=== PATIENT | female | born 1990 | race Caucasian/White ===

== ENCOUNTER 2023-07-29 22:17 | Emergency (ER) | payer OTHER ==
[~2023-07-29] VITALS: Ht 152.4 cm; Wt 70.4 kg
[2023-07-29 22:27] VITALS: BP 139/86; PULSE 74; RESP 14; TEMP 98.3; O2SAT 98
[2023-07-29] MEDS ORDERED: IBUP-2218 PO (23:38)
[2023-07-29] MEDS ORDERED: ACET-10509 PO (23:38)
[2023-07-29] MEDS: KETOROLAC 30 MG/ML VIAL IM ONE (23:57)
[2023-07-29] MEDS: LIDOCAINE 5% 1 EA PATCH TP ONE (23:59)
[2023-07-30] VITALS: BP 136/78; PULSE 70; RESP 18; TEMP 97.7; O2SAT 100
== END 2023-07-29 23:55 | disposition home or self-care (01) ==
LOC: MED 22:17
DX: S39.012A Strain of muscle, fascia and tendon of lower back, initial encounter (principal); V49.88XA Car occupant (driver) (passenger) injured in other specified transport accidents, initial encounter; Y93.89 Activity, other specified; Y92.89 Other specified places as the place of occurrence of the external cause; Y99.8 Other external cause status
CPT/HCPCS: 81025; 96372; 99283; J1885

== ENCOUNTER 2023-08-31 18:28 | Emergency (ER) | payer OTHER ==
[~2023-08-31] VITALS: Ht 160 cm; Wt 70.8 kg
[~2023-08-31 18:28] MED LIST: ACET-10509 PO; IBUP-2218 PO
[2023-08-31 18:37] VITALS: BP 139/82; PULSE 73; RESP 17; TEMP 97.8; O2SAT 99
[2023-08-31 19:00] VITALS: O2SAT 98
[2023-08-31] MEDS: KETOROLAC 60 MG/2 ML VIAL IM ONE (19:29)
[2023-08-31 20:33] VITALS: BP 135/80; PULSE 75; RESP 17; TEMP 98; O2SAT 99
[2023-08-31] MEDS ORDERED: IBUP-2213 PO (21:25)
[2023-08-31] MEDS ORDERED: CYCL-711 PO (21:25)
== END 2023-08-31 21:50 | disposition home or self-care (01) ==
LOC: MED 18:28
DX: S39.012A Strain of muscle, fascia and tendon of lower back, initial encounter (principal); M79.632 Pain in left forearm; R51.9 Headache, unspecified; M54.6 Pain in thoracic spine; R20.2 Paresthesia of skin; Z86.39 Personal history of other endocrine, nutritional and metabolic disease; Z79.899 Other long term (current) drug therapy; V89.2XXA Person injured in unspecified motor-vehicle accident, traffic, initial encounter; Y93.89 Activity, other specified; Y92.410 Unspecified street and highway as the place of occurrence of the external cause; Y99.8 Other external cause status
CPT/HCPCS: 72072; 72110; 73090; 81025; 96372; 99284; J1885

== ENCOUNTER 2023-09-19 09:41 | Emergency (ER) | payer OTHER ==
[~2023-09-19] VITALS: Ht 152.4 cm; Wt 65.8 kg
[~2023-09-19 09:41] MED LIST changes: +CYCL-711 PO; +IBUP-2213 PO
[2023-09-19 09:48] VITALS: BP 96/60; PULSE 98; RESP 22; TEMP 98.9; O2SAT 98
[2023-09-19 10:10] VITALS: O2SAT 98
[2023-09-19] MEDS: NACL 0.9% 1,000 ML IV ONE (10:27)
[2023-09-19] MEDS: ONDANSETRON 4 MG/2 ML VIAL IVP ONE (10:28)
[2023-09-19 10:42] LABS: BASOPHILS % (AUTO) 0.1 % (0.0-2.0); HEMATOCRIT 35.3 % (36-48); HEMOGLOBIN 11.1 g/dL (12.0-16.0); LYMPHOCYTES # (AUTO) 0.3 K/uL (2.5-16.5); LYMPHOCYTES % (AUTO) 3.5 % (20.5-51.1); MEAN CORPUSCULAR HEMOGLOBIN 23 pg (27-31); MEAN CORPUSCULAR HGB CONC 32 g/dL (33-37); MEAN CORPUSCULAR VOLUME 72.9 fL (80-94); MONOCYTES # (AUTO) 0.6 K/uL (0.8-1.0); MONOCYTES % (AUTO) 5.8 % (1.7-9.3); NEUTROPHILS % (AUTO) 90.6 % (42.2-75.2); PLATELET COUNT (AUTO) 342 K/uL (140-450); RED BLOOD CELL COUNT(AUTO) 4.84 MIL/uL (4.20-5.40); RED CELL DISTRIBUTION WIDTH 16.4 % (11.6-13.7)
[2023-09-19 10:53] LABS: ANION GAP 10.7 (8-16); CALCIUM 8.4 mg/dL (8.5-10.1); CARBON DIOXIDE 27.2 mmol/L (21-32); CREATININE 0.9 mg/dL (0.6-1.3); POTASSIUM 3.9 mmol/L (3.5-5.1)
[2023-09-19 10:59] LABS: ALBUMIN 3.7 g/dL (3.4-5.0); BILIRUBIN,DIRECT 0.1 mg/dL (0.0-0.3); TOTAL BILIRUBIN 0.6 mg/dL (0.0-1.0); TOTAL PROTEIN, SERUM 7.8 g/dL (6.4-8.2)
[2023-09-19 11:00] LABS: APPEARANCE,URINE CLEAR (CLEAR); BILIRUBIN,URINE NEGATIVE (NEGATIVE); BLOOD, URINE TRACE-I (NEGATIVE); COLOR,URINE YELLOW (YELLOW); LEUKOCYTE ESTERASE ,URINE NEGATIVE (NEGATIVE); NITRITE, URINE NEGATIVE (NEGATIVE); PROTEIN,URINE TRACE (NEGATIVE); UGLUCOSE NEGATIVE (NEGATIVE); UROBILINOGEN,URINE 0.2 EU/dL (0.2 - 1)
[2023-09-19] MEDS ORDERED: ONDA-188 SL (11:58)
[2023-09-19] MEDS ORDERED: LOPE1TAB14 PO (11:58)
[2023-09-19] MEDS ORDERED: BEN10 PO (11:58)
[2023-09-19 12:14] VITALS: BP 109/65; PULSE 88; RESP 16; TEMP 98.1; O2SAT 98
[2023-09-19 14:24] LABS: FLU A ANTIGEN negative (NEGATIVE); FLU B ANTIGEN negative (NEGATIVE)
== END 2023-09-19 12:14 | disposition home or self-care (01) ==
LOC: MED 09:41
DX: A05.9 Bacterial foodborne intoxication, unspecified (principal); D50.9 Iron deficiency anemia, unspecified; Z20.822 Contact with and (suspected) exposure to COVID-19; Z86.39 Personal history of other endocrine, nutritional and metabolic disease; Z79.1 Long term (current) use of non-steroidal anti-inflammatories (NSAID); Z79.899 Other long term (current) drug therapy
CPT/HCPCS: 36415; 80048; 80076; 81003; 81025; 83690; 85025; 87426; 87804; 96361; 96374; 99283; J2405